=== PATIENT | female | born 1945 | race Caucasian/White ===

== ENCOUNTER 2016-11-08 12:36 | Inpatient (IN) | payer MEDICARE, OTHER ==
--- NOTE | 2016-11-08 12:58 | PDOC ---
History of Present Illness - General History Source: Patient Exam Limitations: No Limitations - History of Present Illness Initial Comments: 11/08/16 13:20 The patient is a 71 year old female with a significant past medical history of lymphoma (in remission), breast CA s/p right sided lumpectomy, hypomagnesemia who presents to the ED with complaints of diarrhea, nausea, and vomiting since yesterday. The patient reports an episode of diarrhea yesterday afternoon. She states she developed nausea and vomiting last night. She also reports left upper quadrant and left lower quadrant pain. Denies flank pain. Denies back pain. Denies chest pain or shortness of breath. Denies fever or chills. Denies any other symptoms. Denies recent sick contact. Surgical hx: spleen removal (a year ago), gallstone removal (multiple years ago) , right lumpectomy (6 years ago) <Reina Richardson - Last Filed: 11/08/16 19:02> <Stephani Garner - Last Filed: 11/10/16 17:38> - General Chief Complaint: Nausea/Vomiting Stated Complaint: NAUSEA/VOMITING Time Seen by Provider: 11/08/16 12:58 Past History <Reina Richardson - Last Filed: 11/08/16 19:02> - Past Medical History Anemia: Yes (no transfusion) Asthma: No Cancer: Yes (Breast CA RIGHT, non-hodgkins Lymphoma) Cardiac Disorders: No CVA: No COPD: No CHF: No Dementia: No Diabetes: No GI Disorders: No Disorders: No HTN: No Hypercholesterolemia: No Liver Disease: No Seizures: No Thyroid Disease: No - Surgical History Abdominal Surgery: No Appendectomy: No Cardiac Surgery: No Cholecystectomy: Yes Lung Surgery: No Neurologic Surgery: No Orthopedic Surgery: No - Suicide/Smoking/Psychosocial Hx Smoking History: Never smoked Have you smoked in the past 12 months: No Hx Alcohol Use: No Drug/Substance Use Hx: No Substance Use Type: None Hx Substance Use Treatment: No <Stephani Garner - Last Filed: 11/10/16 17:38> - Past Medical History Allergies/Adverse Reactions: Allergies Allergy/AdvReac Type Severity Reaction Status Date / Time No Known Drug Allergies Allergy Verified 11/08/16 12:39 Home Medications: Ambulatory Orders Benzonatate [Tessalon Perle -] 100 mg PO TID 03/08/14 Calcium Carbonate [Oyster Shell Calcium] 1,250 mg PO ASDIR 03/08/14 Folic Acid - 1 mg PO DAILY 03/08/14 Hydroxychloroquine Sulfate 200 mg PO ASDIR 03/08/14 Cholecalciferol (Vitamin D3) [Vitamin D3 -] 1,000 unit PO DAILY 11/08/16 Review of Systems - Review of Systems Able to Perform ROS?: Yes Comments:: 11/08/16 13:20 CONSTITUTIONAL: No reported: Fever, Chills, Diaphoresis, Generalized Weakness, Malaise, Loss of Appetite HEENT: No reported: Rhinorrhea, Nasal Congestion, Throat Pain, Throat Swelling, Difficulty Swallowing, Mouth Swelling, Ear Pain, Eye Pain, Visual Changes CARDIOVASCULAR: No reported: Chest Pain, Syncope, Palpitations, Irregular Heart Rate, Lightheadedness, Peripheral Edema RESPIRATORY: No reported: Cough, Shortness of Breath, SOB with Exertion, Orthopnea, Wheezing , Stridor, Hemoptysis GASTROINTESTINAL: + abdominal pain, nausea, vomiting, diarrhea No reported: Abdominal Distension,Constipation, Melena, Hematochezia GENITOURINARY: No reported: Dysuria, Frequency, Urgency, Hesitancy, Flank Pain, Genital Pain MUSCULOSKELETAL: No reported: Myalgia, Arthralgia, Joint Swelling, Back pain, Neck Pain SKIN: No reported: Rash, Itching, Pallor HEMEATOLOGIC/IMMUNOLOGIC: No reported: Easy Bleeding, Easy Bruising, Lymphadenopathy, Frequent infections ENDOCRINE: No reported: Unexplained Weight Gain, Unexplained Weight Loss, Heat Intolerance , Cold Intolerance NEUROLOGIC: No reported: Headache, Focal Weakness, Paresthesias, Vertigo, Lightheadedness, Unsteady Gait, Seizure, Mental Status Changes, Incontinence PSYCHIATRIC: No reported: Anxiety, Depression All Other Systems: Reviewed and Negative <Reina Richardson - Last Filed: 11/08/16 19:02> *Physical Exam - Vital Signs Last Vital Signs Temp Pulse Resp BP Pulse Ox 98.9 F 103 H 20 155/76 97 11/08/16 12:39 11/08/16 12:39 11/08/16 12:39 11/08/16 12:39 11/08/16 12:39 - Physical Exam Comments: 11/08/16 13:20 GENERAL: Well developed, well nourished. Awake and alert. No acute distress. HEENT: + dry mucous membranes. Normocephalic, atraumatic. PERRLA, EOMI. No conjunctival pallor. Sclera are non- icteric. Oropharynx is clear. NECK: Supple. Full ROM. No JVD. Carotid pulses 2+ and symmetric, without bruits. No thyromegaly. No lymphadenopathy. CARDIOVASCULAR: Regular rate and rhythm. No murmurs, rubs, or gallops. Distal pulses are 2+ and symmetric. PULMONARY: No evidence of respiratory distress. Lungs clear to auscultation bilaterally. No wheezing, rales or rhonchi. ABDOMINAL: + left upper quadrant tenderness, left lower quadrant tenderness. Hyperactive bowel sounds. Soft. Non-distended. No rebound or guarding. No organomegaly. MUSCULOSKELETAL Normal range of motion at all joints. No bony deformities or tenderness. No CVA tenderness. EXTREMITIES: No cyanosis. No clubbing. No edema. No calf tenderness. SKIN: Warm and dry. Normal capillary refill. No rashes. No jaundice. NEUROLOGICAL: Alert, awake, appropriate. Cranial nerves 2-12 intact. No deficits to light touch and temperature in face, upper extremities and lower extremities. No motor deficits in the in face, upper extremities and lower extremities. Normoreflexic in the upper and lower extremities. Normal speech. Toes are down- going bilaterally. Gait is normal without ataxia. PSYCHIATRIC: Cooperative. Good eye contact. Appropriate mood and affect. <Reina Richardson - Last Filed: 11/08/16 19:02> - Vital Signs Last Vital Signs Temp Pulse Resp BP Pulse Ox 98.9 F 103 H 20 155/76 97 11/08/16 12:39 11/08/16 12:39 11/08/16 12:39 11/08/16 12:39 11/08/16 12:39 <Stephani Garner - Last Filed: 11/10/16 17:38> ED Treatment Course - LABORATORY CBC & Chemistry Diagram: 11/08/16 12:59 11/08/16 12:59 <Reina Richardson - Last Filed: 11/08/16 19:02> - LABORATORY CBC & Chemistry Diagram: 11/10/16 06:30 11/10/16 06:30 <Stephani Garner - Last Filed: 11/10/16 17:38> Medical Decision Making - Medical Decision Making 11/08/16 19:02 Dr. Rosenbaum was paged at 19:02. <Reina Richardson - Last Filed: 11/08/16 19:02> - Medical Decision Making 11/08/16 13:07 71-year-old female presents with complaint of nausea, vomiting, diarrhea and left lower quadrant pain PMH Lymphoma,anemia ,L breast cancer PSH Left lumpectomy,cholecystectomy,splenectomy 11/08/16 16:10 11/08/16 16:22 pt has been experiencing nausea,vomiting and diarrhea since last night -she has c/o LUQ and LLQ pain -Diff diag includes sbo because she's had prior surgeries/diverticulitis <Stephani Garner - Last Filed: 11/10/16 17:38> *DC/Admit/Observation/Transfer - Attestations Scribe Attestion: 11/08/16 13:21 Documentation prepared by Reina Richardson, acting as medical file clerk for Stephani Garner MD <Reina Richardson - Last Filed: 11/08/16 19:02> <Stephani Garner - Last Filed: 11/10/16 17:38> Diagnosis at time of Disposition: Colitis - Discharge Dispostion Condition at time of disposition: Stable - Referrals
[2016-11-08] MEDS ORDERED: SODIUM CHLORIDE 1,000 ML IV STA ×2 (13:09→15:53)
[2016-11-08] MEDS ORDERED: ONDANSETRON 4 MG/2 ML VIAL IVPUSH ONE ×2 (13:09→18:12)
[2016-11-08] MEDS ORDERED: HYDROmorphone HCL CARPU-JECT 1 MG/1 ML DISP.SYRIN IVPUSH ONE (13:57)
[2016-11-08] MEDS ORDERED: ONDANSETRON 4 MG/2 ML VIAL ONE (14:00)
[2016-11-08 14:21] LABS: URINE APPEARANCE CLEAR; URINE BILIRUBIN NEGATIVE (NEGATIVE); URINE BLOOD NEGATIVE (NEGATIVE); URINE COLOR LTYELLOW; URINE GLUCOSE (UA) NEGATIVE (NEGATIVE); URINE KETONE NEGATIVE (NEGATIVE); URINE LEUK ESTERASE NEGATIVE (NEGATIVE); URINE NITRITE NEGATIVE (NEGATIVE); URINE PROTEIN NEGATIVE (NEGATIVE); URINE UROBILINOGEN NEGATIVE mg/dL (0.2-1.0)
[2016-11-08 14:49] LABS: BASOPHIL 0.6 % (0-2.0); EOSINOPHIL 0.3 % (0-4.5); MCH 28.6 pg (25.7-33.7); MCHC 33.4 g/dl (32.0-36.0); MEAN CELL VOLUME 85.4 fl (80-96); MEAN PLT VOLUME 9.5 fl (7.5-11.1); NEUTROPHILS 70.2 % (42.8-82.8); RDW 15.3 % (11.6-15.6); WHITE BLOOD COUNT 20.1 K/mm3 (4.0-10.0)
[2016-11-08 15:13] LABS: ALBUMIN 3.7 g/dl (3.4-5.0); ANION GAP 7 (8-16); BILIRUBIN,TOTAL 0.4 mg/dL (0.2-1.0); CALCIUM 8.8 mg/dL (8.5-10.1); CO2 26 mmol/L (21-32); CREATININE 0.7 mg/dL (0.55-1.02); GLUCOSE,RANDOM 91 mg/dL (74-106); SGOT/AST 29 U/L (15-37); SGPT/ALT 30 U/L (12-78); TOT PROT 8.6 g/dl (6.4-8.2)
[2016-11-08 15:14] LABS: ALK PHOS 329 U/L (45-117)
[2016-11-08] MEDS ORDERED: HYDROmorphone HCL CARPU-JECT 1 MG/1 ML DISP.SYRIN ONE (15:14)
[2016-11-08 15:34] LABS: PLATELET COUNT 154 K/MM3 (134-434); PLATELET ESTIMATE INCREASED (NORMAL)
[2016-11-08 15:45] LABS: CPK 174 IU/L (26-192); TROPONIN I < 0.02 ng/ml (0.00-0.05)
--- NOTE | 2016-11-08 19:53 | PDOC ---
*Physical Exam - Vital Signs Last Vital Signs Temp Pulse Resp BP Pulse Ox 98.7 F 91 H 18 155/76 97 11/08/16 18:26 11/08/16 18:26 11/08/16 18:26 11/08/16 18:26 11/08/16 18:26 ED Treatment Course - LABORATORY CBC & Chemistry Diagram: 11/08/16 12:59 11/08/16 12:59 - ADDITIONAL ORDERS Additional order review: Laboratory Results 11/08/16 11/08/16 11/08/16 14:26 12:59 12:59 Sodium 140 Potassium 3.7 Chloride 107 Carbon Dioxide 26 Anion Gap 7 L BUN 11 D Creatinine 0.7 Creat Clearance w eGFR > 60 Random Glucose 91 Calcium 8.8 Total Bilirubin 0.4 D AST 29 ALT 30 Alkaline Phosphatase 329 H D Creatine Kinase 174 Creatine Kinase Index 4.1 CK-MB (CK-2) 7.208 H Troponin I < 0.02 Total Protein 8.6 H Albumin 3.7 Lipase 418 H Urine Color Ltyellow Urine Appearance Clear Urine pH 6.0 Urine Protein Negative Urine Glucose (UA) Negative Urine Ketones Negative Urine Blood Negative Urine Nitrite Negative Urine Bilirubin Negative Urine Urobilinogen Negative 11/08/16 12:59 RBC 4.57 D MCV 85.4 MCHC 33.4 RDW 15.3 D MPV 9.5 D Neutrophils % 70.2 Lymphocytes % 19.2 D Monocytes % 9.7 Eosinophils % 0.3 Basophils % 0.6 - Medications Given in the ED: ED Medications Discontinued Medications Generic Name Dose Route Start Last Admin Trade Name Freq PRN Reason Stop Dose Admin Hydromorphone HCl 0.5 mg 11/08/16 13:57 11/08/16 15:15 Dilaudid Injection - IVPUSH 11/08/16 13:58 0.5 mg ONCE ONE Administration Sodium Chloride 1,000 mls @ 1,000 mls/hr 11/08/16 13:09 11/08/16 14:14 Normal Saline - IV 11/08/16 14:08 1,000 mls/hr ASDIR STA Administration Sodium Chloride 1,000 mls @ 1,000 mls/hr 11/08/16 15:53 11/08/16 18:19 Normal Saline - IV 11/08/16 16:52 1,000 mls/hr ASDIR STA Administration Ondansetron HCl 4 mg 11/08/16 13:09 11/08/16 14:10 Zofran Injection IVPUSH 11/08/16 13:10 4 mg ONCE ONE Administration Ondansetron HCl 4 mg 11/08/16 18:12 11/08/16 18:19 Zofran Injection IVPUSH 11/08/16 18:13 4 mg ONCE ONE Administration Medical Decision Making - Medical Decision Making 11/08/16 19:45 Patient signed out to me by Dr. Garner. Briefly, 71-year-old female history of lymphoma in remission and breast cancer status post lumpectomy presents with nausea vomiting and diarrhea as well as abdominal pain since yesterday. WBC 20, lipase 418. CT scan with new biliary duct dilation as well as multiple enlarged lymph nodes intra-abdominally and diffuse thickening of the olivares of the colon. I spoke with Dr. Molina's BUILDING ASSOCIATE Rosanne who is covering for Dr. Gray - pt accepted for admission for further management. LAVERN Lay also requested c/s Dr. Diaz from GI who we called and are awaiting a call back. Case discussed in detail with admitting physician including history, physical exam and ancillary studies. Admitting physician has assumed care for the patient, will follow all pending diagnostics and will complete the evaluation and treatment. 11/08/16 19:[address] Diaz who will see the patient. *DC/Admit/Observation/Transfer Diagnosis at time of Disposition: Colitis - Discharge Dispostion Condition at time of disposition: Stable Admit: Yes - Referrals Referrals: Armin Rosenbaum MD [Primary Care Provider] - - Patient Instructions - Post Discharge Activity - Attestations Physician Attestion: 11/08/16 19:54 I, Dr. Shahram Scruggs MD, attest that this document has been prepared under my direction and personally reviewed by me in its entirety. I further attest, that it accurately reflects all work, treatment, procedures and medical decision -making performed by me.
--- NOTE | 2016-11-08 20:30 | EKG ---
Test Reason : Blood Pressure : / mmHG Vent. Rate : 087 BPM Atrial Rate : 087 BPM P-R Int : 138 ms QRS Dur : 078 ms QT Int : 420 ms P-R-T Axes : 042 052 049 degrees QTc Int : 505 ms NORMAL SINUS RHYTHM SEPTAL INFARCT , AGE UNDETERMINED PROLONGED QT ABNORMAL ECG WHEN COMPARED WITH ECG OF 12-AUG-2013 16:02, SEPTAL INFARCT IS NOW PRESENT Confirmed by JUSTINO JACOBS, BILL ([id number]) on 11/08/2016 8:30:05 PM Referred By: Confirmed By:BILL BADILLO MD
[2016-11-08] MEDS ORDERED: ONDANSETRON 4 MG/2 ML VIAL IVPB PRN (20:33)
[2016-11-08] MEDS ORDERED: morphine CARPU-JECT 4 MG/1 ML DISP.SYRIN IVPUSH PRN (20:37)
[2016-11-08] MEDS ORDERED: DEXTROSE 5%-NORMAL SALINE 1,000 ML IV SCH (20:45)
[2016-11-09 01:58] VITALS: BMI 24.7
[2016-11-09] MEDS: HEPARIN NA (PORCINE) 5,000 UNITS/ML 1ML VIAL SQ SCH ×3 (07:31→22:13)
[2016-11-09 07:51] LABS: BASOPHIL 0.3 % (0-2.0); EOSINOPHIL 0.3 % (0-4.5); MCH 28.7 pg (25.7-33.7); MCHC 33.9 g/dl (32.0-36.0); MEAN CELL VOLUME 84.7 fl (80-96); MEAN PLT VOLUME 10.1 fl (7.5-11.1); NEUTROPHILS 70.7 % (42.8-82.8); WHITE BLOOD COUNT 17.8 K/mm3 (4.0-10.0)
[2016-11-09] MEDS ORDERED: FLU VACCINE QUAD 60 MCG/0.5 ML (MDV 17-18) IM ONE (08:00)
[2016-11-09 08:20] LABS: ALBUMIN 3.4 g/dl (3.4-5.0); ALK PHOS 290 U/L (45-117); AMYLASE 94 U/L (25-115); ANION GAP 6 (8-16); BILIRUBIN,TOTAL 0.7 mg/dL (0.2-1.0); CO2 26 mmol/L (21-32); CREATININE 0.6 mg/dL (0.55-1.02); GLUCOSE,RANDOM 104 mg/dL (74-106); SGOT/AST 25 U/L (15-37); SGPT/ALT 28 U/L (12-78)
[2016-11-09 09:02] LABS: PLATELET COUNT 270 K/MM3 (134-434); PLATELET ESTIMATE ADEQUATE (NORMAL)
--- NOTE | 2016-11-09 09:03 | CON.ID ---
Consult Consult Specialty:: Infectious Disease Reason for Consultation:: Multiple episodes of diarrhea - History of Present Illness History of Present Illness: 71yo F with significant history of lymphoma (in remission; last dose of chemo 2 years ago) who presents with multiple episodes of watery, diarrhea that has been increasingly worse since 11/07. Pt states she has had diarrhea intermittantly for the past 2 months, however she states recently it has gotten worse. She confirms associated nausea and multipe episodes of vomiting without any noted blood or mucus seen. She denies any melena or hematachezia, denies any recent travel, fever/chills, recent antibiotic usage, and sick contacts. As stated above, her last dose of chemotherapy was 2 years ago in [place] and she reports being in remission for her lymphoma since then. She reports having a splenectomy one year prior and remembers receiving 3-4 vaccines prior to the surgery which she keeps up to date. SoHx: No sick contacts. No recent travel. Lives in [place]; retired. No smoking , drinking, illicit drug use NKDA - History Source History Provided By: Patient Limitations to Obtaining History: No Limitations - Past Medical History Heme/Onc: Yes: Cancer (Breast s/p Right lumpectomy), Other (Lymphoma) Endocrine: Yes: Other (Hypomagnesemia) - Past Surgical History Past Surgical History: Yes: Cholecystectomy ("Many years ago"), Colonoscopy ( Most recent about 2014), Splenectomy (1 year ago) Additional Surgical History: R breast lumpectomy (6 years ago) - Alcohol/Substance Use Hx Alcohol Use: No - Smoking History Smoking history: Never smoked Have you smoked in the past 12 months: No - Social History ADL: Independent Occupation: Retired History of Recent Travel: No Home Medications - Allergies Allergies/Adverse Reactions: Allergies Allergy/AdvReac Type Severity Reaction Status Date / Time No Known Drug Allergies Allergy Verified 11/08/16 12:39 - Home Medications Home Medications: Ambulatory Orders Benzonatate [Tessalon Perle -] 100 mg PO TID 03/08/14 Calcium Carbonate [Oyster Shell Calcium] 1,250 mg PO ASDIR 03/08/14 Folic Acid - 1 mg PO DAILY 03/08/14 Hydroxychloroquine Sulfate 200 mg PO ASDIR 03/08/14 Cholecalciferol (Vitamin D3) [Vitamin D3 -] 1,000 unit PO DAILY 11/08/16 Physical Exam Vital Signs: Vital Signs Temperature 98.1 F 11/09/16 06:00 Pulse Rate 80 11/09/16 06:00 Respiratory Rate 18 11/09/16 06:00 Blood Pressure 142/54 11/09/16 06:00 O2 Sat by Pulse Oximetry (%) 98 11/08/16 19:55 Constitutional: Yes: Well Nourished, No Distress, Calm Eyes: Yes: Conjunctiva Clear, EOM Intact, PERRL Neck: Yes: Supple, Trachea Midline. No: Lymphadenopathy Cardiovascular: Yes: Regular Rate and Rhythm. No: Murmur Respiratory: Yes: Regular, CTA Bilaterally. No: Rales, Rhonchi, SOB, Wheezes Gastrointestinal: Yes: Normal Bowel Sounds, Soft. No: Hepatomegaly, Tenderness Edema: No Neurological: Yes: Alert, Oriented Psychiatric: Yes: Alert, Oriented Labs: CBC, BMP 11/09/16 07:00 11/09/16 07:00 Hepatic Panel Total Bilirubin 0.7 mg/dL (0.2-1.0) D 11/09/16 07:00 AST 25 U/L (15-37) 11/09/16 07:00 ALT 28 U/L (12-78) 11/09/16 07:00 Alkaline Phosphatase 290 U/L (45-117) H 11/09/16 07:00 Albumin 3.4 g/dl (3.4-5.0) 11/09/16 07:00 Imaging - Results Cat Scan: Image Reviewed (By my read: contrast seen throughout the colon, slight thickening of R colonic wall, no stranding or other inflammatory signs seen in the area of thickening in question; slightly dilated biliary tract noted ; official read pending) Assessment/Plan Assessment: Differential includes --Viral gastroenteritis vs IBS --Doubt C. Diff infection or other colitis; will r/o Leukocytosis Plan: Will observe off antibiotics for now; pt is afebrile with symptomatic improvement from initial presentation Leukocytosis most likely attributed to prior history of splenectomy and lymphoma --Recommend trending due to elevation Follow-up on C. Diff Ag and toxin Stool Cx; Blood Cx; Stool ova and parasites; Rotavirus Ag; Norovirus PCR all ordered Mahad Sloan, PGY-1
--- NOTE | 2016-11-09 09:03 | PN ---
Progress Note (short form) - Note Progress Note: Called to evaluate patient. Ms. Wooten tells me that she has been followed by Dr. Arroyo who performed hwr two screening colonoscopies, the last being about 3 -4 years ago. I spoke with Dr. Gillis who stated that he would see the patient today. I advised him that an MRI/MRCP had been ordered for evaluation of her dilated biliary tract.
[2016-11-09 09:34] LABS: LDH 207 U/L (84-246)
--- NOTE | 2016-11-09 12:13 | PN ---
Teaching Attending Note Name of Resident: Mahad Sloan ATTENDING PHYSICIAN STATEMENT I saw and evaluated the patient. I reviewed the resident's note and discussed the case with the resident. I agree with the resident's findings and plan as documented. SUBJECTIVE:71 y/o female PMH lymphoma in remission, S/P splenectomy, admitted with non-bloody diarrhea. Afebrile with elevated WBC. No ill contacts, no travel, no recent antibiotics. OBJECTIVE: Non toxic appearing Afebrile Cor S1S2 Lungs clear Abdomen +BS , soft, non tender ASSESSMENT AND PLAN: Acute gastroenteritis vs. colitis Leukocytosis multifactorial Hx splenectomy Await cultures, stool studies Observe off antibiotics
--- NOTE | 2016-11-09 15:28 | HP ---
Admitting History and Physical - Primary Care Physician PCP: Garry Dan - Admission Chief Complaint: ABD PAIN/NAUSEA AND VOMITING History of Present Illness: The patient is a 71 year old female with a significant past medical history of lymphoma (in remission), breast CA s/p right sided lumpectomy, hypomagnesemia who presents to the ED with complaints of diarrhea, nausea, and vomiting since yesterday. The patient reports an episode of diarrhea yesterday afternoon. She states she developed nausea and vomiting last night. She also reports left upper quadrant and left lower quadrant pain. Denies flank pain. Denies back pain. Denies chest pain or shortness of breath. Denies fever or chills. Denies any other symptoms. Denies recent sick contact. History Source: Patient, Medical Record - Past Medical History Heme/Onc: Yes: Cancer (Breast s/p Right lumpectomy), Other (Lymphoma) Endocrine: Yes: Other (Hypomagnesemia) - Past Surgical History Past Surgical History: Yes: Cholecystectomy ("Many years ago"), Colonoscopy ( Most recent about 2014), Splenectomy (1 year ago) - Smoking History Smoking history: Never smoked Have you smoked in the past 12 months: No - Alcohol/Substance Use Hx Alcohol Use: No - Social History ADL: Independent Occupation: Retired History of Recent Travel: No Home Medications - Allergies Allergies/Adverse Reactions: Allergies Allergy/AdvReac Type Severity Reaction Status Date / Time No Known Drug Allergies Allergy Verified 11/08/16 12:39 - Home Medications Home Medications: Ambulatory Orders Benzonatate [Tessalon Perle -] 100 mg PO TID 03/08/14 Calcium Carbonate [Oyster Shell Calcium] 1,250 mg PO ASDIR 03/08/14 Folic Acid - 1 mg PO DAILY 03/08/14 Hydroxychloroquine Sulfate 200 mg PO ASDIR 03/08/14 Cholecalciferol (Vitamin D3) [Vitamin D3 -] 1,000 unit PO DAILY 11/08/16 Review of Systems - Review of Systems Constitutional: reports: Loss of Appetite, Weakness Eyes: reports: No Symptoms HENT: reports: No Symptoms Neck: reports: No Symptoms Cardiovascular: reports: No Symptoms Respiratory: reports: No Symptoms Gastrointestinal: reports: Abdominal Pain, Constipation, Indigestion, Nausea, Vomiting Genitourinary: reports: No Symptoms Musculoskeletal: reports: No Symptoms Integumentary: reports: No Symptoms Neurological: reports: No Symptoms Endocrine: reports: No Symptoms Hematology/Lymphatic: reports: No Symptoms Psychiatric: reports: No Symptoms Physical Examination Vital Signs: Vital Signs Temperature 98.1 F 11/09/16 06:00 Pulse Rate 80 11/09/16 06:00 Respiratory Rate 18 11/09/16 06:00 Blood Pressure 142/54 11/09/16 06:00 O2 Sat by Pulse Oximetry (%) 98 11/08/16 19:55 Constitutional: Yes: Mild Distress Eyes: Yes: WNL HENT: Yes: WNL Neck: Yes: WNL Cardiovascular: Yes: WNL Respiratory: Yes: WNL Gastrointestinal: Yes: Tenderness, Rebound Renal/: Yes: WNL Musculoskeletal: Yes: WNL Extremities: Yes: WNL Edema: No Integumentary: Yes: WNL Wound/Incision: Yes: Clean/Dry Neurological: Yes: WNL ...Motor Strength: WNL Psychiatric: Yes: WNL Labs: CBC, BMP 11/09/16 07:00 11/09/16 07:00 Problem List - Problems (1) Colitis Code(s): K52.9 - NONINFECTIVE GASTROENTERITIS AND COLITIS, UNSPECIFIED (2) Anemia Code(s): D64.9 - ANEMIA, UNSPECIFIED (3) Blast cell leukemia Code(s): C95.00 - ACUTE LEUKEMIA OF UNSP CELL TYPE NOT ACHIEVE REMISSION (4) Hypomagnesemia Code(s): E83.42 - HYPOMAGNESEMIA Assessment/Plan ID CONSULT FOR COLITIS GI DR OLIVA NPO IVF REPLETE KCL AND MG
[2016-11-09] MEDS: KCL 10 MEQ IVPB 100 ML IVPB SCH ×2 (16:07→17:09)
[2016-11-09] MEDS: POTASSIUM CHLORIDE 10 MEQ in DEXTROSE 5%-NORMAL SALINE 1,000 ML IVPB SCH (17:09)
[2016-11-09] MEDS: ONDANSETRON 4 MG/2 ML VIAL IVPB SCH (17:59)
--- NOTE | 2016-11-09 18:00 | CON.GI ---
Consult Consult Specialty:: GI Referred by:: Dr Dan Reason for Consultation:: N/V/D - History of Present Illness Chief Complaint: Admitted with 1 day N/V and diarrhea. She only had a single episode of diarrhea. History of Present Illness: 71 F with h/o lymphoma (in remission), breast CA s/p right sided lumpectomy, admitted with 24 hours of enteritis symptoms CT done with contrast shows areas of colonic thickening and mildly dilated central bile ducts. - History Source History Provided By: Patient, Medical Record Limitations to Obtaining History: No Limitations - Past Medical History Endocrine: Yes: Other (Hypomagnesemia) - Past Surgical History Past Surgical History: Yes: Cholecystectomy ("Many years ago"), Colonoscopy ( Most recent about 2014), Splenectomy (1 year ago) Additional Surgical History: R breast lumpectomy (6 years ago) - Alcohol/Substance Use Hx Alcohol Use: No - Smoking History Smoking history: Never smoked Have you smoked in the past 12 months: No - Social History ADL: Independent Occupation: Retired History of Recent Travel: No Home Medications - Allergies Allergies/Adverse Reactions: Allergies Allergy/AdvReac Type Severity Reaction Status Date / Time No Known Drug Allergies Allergy Verified 11/08/16 12:39 - Home Medications Home Medications: Ambulatory Orders Benzonatate [Tessalon Perle -] 100 mg PO TID 03/08/14 Calcium Carbonate [Oyster Shell Calcium] 1,250 mg PO ASDIR 03/08/14 Folic Acid - 1 mg PO DAILY 03/08/14 Hydroxychloroquine Sulfate 200 mg PO ASDIR 03/08/14 Cholecalciferol (Vitamin D3) [Vitamin D3 -] 1,000 unit PO DAILY 11/08/16 Physical Exam-GI Vital Signs: Vital Signs Temperature 97.9 F 11/09/16 16:10 Pulse Rate 70 11/09/16 16:10 Respiratory Rate 20 11/09/16 16:10 Blood Pressure 167/80 11/09/16 16:10 O2 Sat by Pulse Oximetry (%) 96 11/09/16 09:00 Constitutional: Yes: Well Nourished, No Distress, Calm Neck: Yes: Supple Cardiovascular: Yes: Regular Rate and Rhythm Respiratory: Yes: CTA Bilaterally Labs: CBC, BMP 11/09/16 07:00 11/09/16 07:00 Hepatic Panel Total Bilirubin 0.7 mg/dL (0.2-1.0) D 11/09/16 07:00 AST 25 U/L (15-37) 11/09/16 07:00 ALT 28 U/L (12-78) 11/09/16 07:00 Alkaline Phosphatase 290 U/L (45-117) H 11/09/16 07:00 Albumin 3.4 g/dl (3.4-5.0) 11/09/16 07:00 Imaging - Results Cat Scan: Report Reviewed (central biliary ductal dilation (mild) and piecemeal colonic thickening suggesting colitis) Assessment/Plan 71 F with above history, called to evaluate above symptoms Symptoms have resolved and as such, no further testing necessary Advance diet mild ductal dilation poss secondary to prior enma, but with elevated alk phos, agree with MRI To follow with onc (Bradley) on d/c
--- NOTE | 2016-11-09 22:16 | CONSULT ---
Consult - text type - Consultation Consultation Note: The patient is a 71 year old female with a significant past medical history of lymphoma (in remission), breast CA s/p right sided lumpectomy, hypomagnesemia who presents to the ED with complaints of diarrhea, nausea, and vomiting since yesterday. She states she developed nausea and vomiting last night. She also reports left upper quadrant and left lower quadrant pain. Denies flank pain. Denies back pain. Denies chest pain or shortness of breath. Denies fever or chills. Denies any other symptoms. Denies recent sick contact. Surgical hx: spleen removal (a year ago), gallstone removal (multiple years ago) , right lumpectomy (6 years ago) - Past Medical History Anemia: Yes (no transfusion) Cancer: Yes (Breast CA RIGHT, non-hodgkins Lymphoma) - Suicide/Smoking/Psychosocial Hx Smoking History: Never smoked Allergies/Adverse Reactions: Allergies Allergy/AdvReac Type Severity Reaction Status Date / Time No Known Drug Allergies Allergy Verified 11/08/16 12:39 Home Medications: Ambulatory Orders Benzonatate [Tessalon Perle -] 100 mg PO TID 03/08/14 Calcium Carbonate [Oyster Shell Calcium] 1,250 mg PO ASDIR 03/08/14 Folic Acid - 1 mg PO DAILY 03/08/14 Hydroxychloroquine Sulfate 200 mg PO ASDIR 03/08/14 Cholecalciferol (Vitamin D3) [Vitamin D3 -] 1,000 unit PO DAILY 11/08/16 Current Medications Generic Name Dose Route Start Last Admin Trade Name Freq PRN Reason Stop Dose Admin Heparin Sodium (Porcine) 5,000 unit 11/08/16 22:00 11/09/16 22:13 Heparin - SQ 5,000 unit BID DWIGHT Administration Potassium Chloride 10 meq/ 1,005 mls @ 75 mls/hr 11/09/16 15:30 11/09/16 17:09 Dextrose/Sodium Chloride IVPB 75 mls/hr ASDIR DWIGHT Administration Morphine Sulfate 2 mg 11/08/16 20:37 Morphine Injection - IVPUSH 11/11/16 20:36 Q4H PRN PAIN Ondansetron HCl 4 mg 11/09/16 18:00 11/09/16 17:59 Zofran Injection IVPB Not Given Q6H DWIGHT - Vital Signs Last Vital Signs Temp Pulse Resp BP Pulse Ox 97.9 F 70 20 167/80 96 11/09/16 16:10 11/09/16 16:10 11/09/16 16:10 11/09/16 16:10 11/09/16 09:00 Cor: RSR, No murmurs, No gallops Lungs: Clear to P&A Abd: Soft, Normal bowel sounds, No organomegaly Ext:No significant edema Skin: No rashes, Integument intact Abnormal Lab Results 11/09/16 11/09/16 07:00 07:00 WBC 17.8 H Monocytes % 11.3 H Potassium 3.2 L Chloride 108 H Anion Gap 6 L Calcium 8.0 L Alkaline Phosphatase 290 H Home Medication List Medication Instructions Recorded Confirmed Type Benzonatate [Tessalon Perle -] 100 mg PO TID 03/08/14 11/08/16 History Calcium Carbonate [Oyster Shell 1,250 mg PO ASDIR 03/08/14 11/08/16 History Calcium] Folic Acid - 1 mg PO DAILY 03/08/14 11/08/16 History Hydroxychloroquine Sulfate 200 mg PO ASDIR 03/08/14 11/08/16 History Cholecalciferol (Vitamin D3) 1,000 unit PO DAILY 11/08/16 11/08/16 History [Vitamin D3 -] Active Medications Generic Name Dose Route Start Last Admin Trade Name Freq PRN Reason Stop Dose Admin Heparin Sodium (Porcine) 5,000 unit 11/08/16 22:00 11/09/16 22:13 Heparin - SQ 5,000 unit BID DWIGHT Administration Potassium Chloride 10 meq/ 1,005 mls @ 75 mls/hr 11/09/16 15:30 11/09/16 17:09 Dextrose/Sodium Chloride IVPB 75 mls/hr ASDIR DWIGHT Administration Morphine Sulfate 2 mg 11/08/16 20:37 Morphine Injection - IVPUSH 11/11/16 20:36 Q4H PRN PAIN Ondansetron HCl 4 mg 11/09/16 18:00 11/09/16 17:59 Zofran Injection IVPB Not Given Q6H DWIGHT A/P 71 y/o patient with h/obreast cancer in 2008, s/p lumpectomy. 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 due to colitis Infectious w/u ongoing will need to f/u with Dr. Huerta as outpatient. ? PEt-CT as outpatient will need PET-CT
[2016-11-10] MEDS: ONDANSETRON 4 MG/2 ML VIAL IVPB SCH ×4 (06:20→17:11)
[2016-11-10 07:35] LABS: MCHC 34.2 g/dl (32.0-36.0); MEAN CELL VOLUME 84.7 fl (80-96); MEAN PLT VOLUME 9.9 fl (7.5-11.1); PLATELET COUNT 275 K/MM3 (134-434); RDW 14.8 % (11.6-15.6); WHITE BLOOD COUNT 18.8 K/mm3 (4.0-10.0)
--- NOTE | 2016-11-10 07:50 | PN ---
Physical Exam: Consulting Specialty: Infectious Disease SUBJECTIVE: Patient resting comfortably in bed. She reports her episodes of diarrhea has ceased, but continues to have intermittent nausea episodes that's being controlled by Zofran. She states she has not had anything by mouth yesterday and is currently hungry. Pt continues to have abdominal discomfort, but it is much lower in intensity than when she initially came in. Denies fever/ chills. OBJECTIVE: Vital Signs Period Temp Pulse Resp BP Sys/Petty Pulse Ox Last 24 Hr 97.2 F-98.4 F 70-87 20-20 128-167/48-80 96-96 GENERAL: The patient is awake, alert, and fully oriented, in no acute distress. HEENT: Normal structures. Moist mucosa. LUNGS: Breath sounds equal, clear to auscultation bilaterally, no wheezes, no crackles, no accessory muscle use. HEART: Regular rate and rhythm, S1, S2 without murmur, rub or gallop. ABDOMEN: Soft, mild tenderness in LLQ > RLQ, non-distended, normoactive bowel sounds, no hepatomegaly appreciated EXTREMITIES: No edema. NEUROLOGICAL: Alert and oriented x3 PSYCH: Normal mood, normal affect Laboratory Results - last 24 hr 11/09/16 11/09/16 11/09/16 07:00 07:00 07:00 WBC 17.8 H RBC 4.14 Hgb 11.9 Hct 35.0 MCV 84.7 MCH 28.7 MCHC 33.9 RDW 15.0 Plt Count 270 D MPV 10.1 Neutrophils % 70.7 Lymphocytes % 17.4 Monocytes % 11.3 H Eosinophils % 0.3 Basophils % 0.3 Platelet Estimate Adequate Platelet Comment No clumping noted Sodium 140 Potassium 3.2 L Chloride 108 H Carbon Dioxide 26 Anion Gap 6 L BUN 7 D Creatinine 0.6 Creat Clearance w eGFR > 60 Random Glucose 104 Calcium 8.0 L Total Bilirubin 0.7 D AST 25 ALT 28 Alkaline Phosphatase 290 H LD Total Cancelled 207 D Total Protein 8.0 Albumin 3.4 Total Amylase 94 Lipase 123 Active Medications Generic Name Dose Route Start Last Admin Trade Name Freq PRN Reason Stop Dose Admin Heparin Sodium (Porcine) 5,000 unit 11/08/16 22:00 11/09/16 22:13 Heparin - SQ 5,000 unit BID DWIGHT Administration Potassium Chloride 10 meq/ 1,005 mls @ 75 mls/hr 11/09/16 15:30 11/09/16 17:09 Dextrose/Sodium Chloride IVPB 75 mls/hr ASDIR DWIGHT Administration Morphine Sulfate 2 mg 11/08/16 20:37 Morphine Injection - IVPUSH 11/11/16 20:36 Q4H PRN PAIN Ondansetron HCl 4 mg 11/09/16 18:00 11/10/16 06:20 Zofran Injection IVPB 4 mg Q6H DWIGHT Administration ASSESSMENT: Viral gastroenteritis most likely Ruling out infectious colitis causes Leukocytosis PLAN: Stool cultures, Norovirus PCR, Rotavirus Ag, C. Diff toxin/Ag pending still Advance diet per GI - currently advanced to "Full liquids" Continue to observe off antibiotics for now due to improving clinical condition As before, leukocytosis multi-factorial Visit type - Emergency Visit Emergency Visit: No - New Patient This patient is new to me today: No - Critical Care Critical Care patient: No
[2016-11-10 07:56] LABS: ANION GAP 7 (8-16); CO2 25 mmol/L (21-32); CREATININE 0.5 mg/dL (0.55-1.02); GLUCOSE,RANDOM 106 mg/dL (74-106); MAGNESIUM 1.7 mg/dL (1.8-2.4)
[2016-11-10] MEDS ORDERED: MAGNESIUM SULF 50% (8.12 MEQ/2 ML-1 GM VIAL) IVPB ONE (08:25)
[2016-11-10] MEDS ORDERED: KCL 10 MEQ IVPB 100 ML IVPB SCH (08:30)
--- NOTE | 2016-11-10 09:00 | PN ---
Progress Note (short form) - Note Progress Note: Patient seen and examined VSS General: NAD HEad: NCAT Neck: No LAD Abdomen: Lungs: Extremities: Temp Pulse Resp BP Pulse Ox 98.4 F 84 20 128/48 96 11/10/16 06:34 11/10/16 06:34 11/10/16 06:34 11/10/16 06:34 11/09/16 21:00 Current Medications Generic Name Dose Route Start Last Admin Trade Name Freq PRN Reason Stop Dose Admin Heparin Sodium (Porcine) 5,000 unit 11/08/16 22:00 11/09/16 22:13 Heparin - SQ 5,000 unit BID DWIGHT Administration Potassium Chloride 10 meq/ 1,005 mls @ 75 mls/hr 11/09/16 15:30 11/09/16 17:09 Dextrose/Sodium Chloride IVPB 75 mls/hr ASDIR DWIGHT Administration Potassium Chloride 100 mls @ 100 mls/hr 11/10/16 08:30 Potassium Chloride 10 Meq Premix Ivpb - IVPB 11/10/16 09:29 Q60M DWIGHT Magnesium Sulfate 1 gm 11/10/16 08:25 Magnesium Sulfate IVPB 11/10/16 08:26 ONCE ONE Morphine Sulfate 2 mg 11/08/16 20:37 Morphine Injection - IVPUSH 11/11/16 20:36 Q4H PRN PAIN Ondansetron HCl 4 mg 11/09/16 18:00 11/10/16 06:20 Zofran Injection IVPB 4 mg Q6H DWIGHT Administration CBC, BMP 11/10/16 06:30 11/10/16 06:30 71 y/o patient with h/obreast cancer in 2008, s/p lumpectomy. 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 Well known to team at [facility] CT c/a/p --shows transverse colitis/dilated central intrahepatic ducts,celiac adenopathy, adnexal cyst, fibrod MRI abdomen: report reviewed LDH nl infectious w/u ongoing Leukocytosis/neutrophilia--? due to colitis +/- absence of spleen contributing. Infectious w/u pending, thus far no growth, presently on conservative management. GI/ID f/u noted will need to f/u with Dr. Bradley as outpatient. ? PET-CT as outpatient to evaluate the present CT findings
[2016-11-10] MEDS ORDERED: PT OWN MED DRAWER 7, Y5N ONE ×2 (10:19→12:07)
[2016-11-10] MEDS: HEPARIN NA (PORCINE) 5,000 UNITS/ML 1ML VIAL SQ SCH ×2 (10:49→21:14)
--- NOTE | 2016-11-10 13:23 | PN ---
Teaching Attending Note Name of Resident: Mahad Sloan ATTENDING PHYSICIAN STATEMENT I saw and evaluated the patient. I reviewed the resident's note and discussed the case with the resident. I agree with the resident's findings and plan as documented. SUBJECTIVE: Still with non-bloody diarrhea No c/o abdominal pain Vomiting last night Afebrile WBC remains elevated OBJECTIVE: Afebrile Abdomen soft, non tender ASSESSMENT AND PLAN: Gastroenteritis v. colitis Leukocytosis S/P Splenectomy Await stool studies Observe off antibiotics
--- NOTE | 2016-11-10 13:59 | PN ---
Progress Note, Physician Chief Complaint: diarrhea continues no fever no chills - Current Medication List Current Medications: Active Medications Heparin Sodium (Porcine) (Heparin -) 5,000 unit SQ BID [facility] Last Admin: 11/10/16 10:49 Dose: 5,000 unit Potassium Chloride 10 meq/ (Dextrose/Sodium Chloride) 1,005 mls @ 75 mls/hr IVPB ASDIR [facility] Last Admin: 11/09/16 17:09 Dose: 75 mls/hr Morphine Sulfate (Morphine Injection -) 2 mg IVPUSH Q4H PRN PRN Reason: PAIN Stop: 11/11/16 20:36 Ondansetron HCl (Zofran Injection) 4 mg IVPB Q6H [facility] Last Admin: 11/10/16 11:51 Dose: Not Given - Objective Vital Signs: Vital Signs Temperature 98.4 F 11/10/16 06:34 Pulse Rate 84 11/10/16 06:34 Respiratory Rate 20 11/10/16 06:34 Blood Pressure 128/48 11/10/16 06:34 O2 Sat by Pulse Oximetry (%) 96 11/09/16 21:00 Constitutional: Yes: No Distress Eyes: Yes: WNL HENT: Yes: WNL Neck: Yes: WNL Cardiovascular: Yes: WNL Respiratory: Yes: WNL Gastrointestinal: Yes: WNL Genitourinary: Yes: WNL Musculoskeletal: Yes: WNL Extremities: Yes: WNL Edema: No Peripheral Pulses WNL: Yes Integumentary: Yes: WNL Wound/Incision: Yes: Clean/Dry Neurological: Yes: WNL ...Motor Strength: WNL Psychiatric: Yes: WNL Labs: CBC, BMP 11/10/16 06:30 11/10/16 06:30 Problem List - Problems (1) Colitis Code(s): K52.9 - NONINFECTIVE GASTROENTERITIS AND COLITIS, UNSPECIFIED (2) Anemia Code(s): D64.9 - ANEMIA, UNSPECIFIED (3) Blast cell leukemia Code(s): C95.00 - ACUTE LEUKEMIA OF UNSP CELL TYPE NOT ACHIEVE REMISSION (4) Hypomagnesemia Code(s): E83.42 - HYPOMAGNESEMIA Assessment/Plan START PO DIET STOOL FOR CDIFF ID FOLLOW UP START PO DIET
[2016-11-10] MEDS: POTASSIUM CHLORIDE 10 MEQ in DEXTROSE 5%-NORMAL SALINE 1,000 ML IVPB SCH (16:17)
--- NOTE | 2016-11-10 19:41 | PN ---
GI Progress Note Subjective: Feels well-no complaint - Objective Vital Signs: Vital Signs Temperature 98.9 F 11/10/16 16:35 Pulse Rate 81 11/10/16 16:35 Respiratory Rate 20 11/10/16 16:35 Blood Pressure 147/66 11/10/16 16:35 O2 Sat by Pulse Oximetry (%) 97 11/10/16 09:00 Constitutional: Well Nourished HENT: Yes: Normocephalic Cardiovascular: Yes: Regular Rate and Rhythm Respiratory: Yes: CTA Bilaterally Gastrointestinal Inspection: Yes: WNL ...Auscultate: Yes: Normoactive Bowel Sounds ...Palpate: Yes: Soft. No: Tenderness ...Percussion: Yes: Dullness Labs: CBC, BMP 11/10/16 06:30 11/10/16 06:30 Hepatic Panel Total Bilirubin 0.7 mg/dL (0.2-1.0) D 11/09/16 07:00 AST 25 U/L (15-37) 11/09/16 07:00 ALT 28 U/L (12-78) 11/09/16 07:00 Alkaline Phosphatase 290 U/L (45-117) H 11/09/16 07:00 Albumin 3.4 g/dl (3.4-5.0) 11/09/16 07:00 Assessment/Plan 71 F with above history, called to evaluate above symptoms Symptoms have resolved and as such, no further testing necessary Advance diet mild ductal dilation poss secondary to prior enma, but with elevated alk phos, agree with MRI which showed stable dilation of the ducts with no choledocholithiasis To follow with onc Saravanan) on d/c
[2016-11-11] MEDS: ONDANSETRON 4 MG/2 ML VIAL IVPB SCH (01:19)
[2016-11-11 07:34] LABS: BASOPHIL 1.3 % (0-2.0); EOSINOPHIL 0.8 % (0-4.5); MCH 28.4 pg (25.7-33.7); MCHC 33.8 g/dl (32.0-36.0); MEAN PLT VOLUME 10.1 fl (7.5-11.1); PLATELET COUNT 284 K/MM3 (134-434); RDW 14.8 % (11.6-15.6); WHITE BLOOD COUNT 16.3 K/mm3 (4.0-10.0)
[2016-11-11 08:02] LABS: ALBUMIN 3.3 g/dl (3.4-5.0); ANION GAP 6 (8-16); CALCIUM 8.2 mg/dL (8.5-10.1); CO2 26 mmol/L (21-32); GLUCOSE,RANDOM 87 mg/dL (74-106); URIC ACID 5.8 mg/dL (2.6-7.2)
[2016-11-11 08:05] LABS: ALK PHOS 231 U/L (45-117); BILIRUBIN,TOTAL 0.7 mg/dL (0.2-1.0); CREATININE 0.5 mg/dL (0.55-1.02); LDH 217 U/L (84-246); SGOT/AST 21 U/L (15-37); SGPT/ALT 24 U/L (12-78)
[2016-11-11] MEDS: HEPARIN NA (PORCINE) 5,000 UNITS/ML 1ML VIAL SQ SCH (09:37)
[2016-11-11 10:58] VITALS: BP 141/69; PULSE 79; TEMP 98.4
--- NOTE | 2016-11-11 11:13 | CONSULT ---
Consult Consult Specialty:: Hematology Oncology Referred by:: Sy Reason for Consultation:: Hx Lymphoma , diarrhea - History of Present Illness Chief Complaint: diarrhea X 5 d, nausea History of Present Illness: 71 y/o F w hx NHL , indolent at this time, no recent chemorx ,s/p splenectomy 1 yr ago admitted w sudden onset diarrhea,watery, 4 days ago assoc w nausea, L sided abdominal crampy pain , no fevers/chills/sweats; pt was feeling well prior to this. Pt also w hx early stage breast cancer and hx lupus-like syndrome . Pt Rx empirically w ab's , getting better . CTa/p and MRI abd. showing mild biliary dilatation , s/p cholecystectomy , slightly enlarged periportal LN's; alk elevated. - History Source History Provided By: Patient Limitations to Obtaining History: No Limitations - Past Medical History BLOCK PILER: No: Alzheimer's, CVA, Dementia, Migraine, Multiple Sclerosis, Peripheral Neuropathy, Parkinson's, Seizure, Syncope, TIA, Vertigo, Other Pulmonary: No: Asthma, Bronchitis, Cancer, COPD, O2 Dependent, Pneumonia, Previously Intubated, Pulmonary Embolus, Pulmonary Fibrosis, Sleep Apnea, Other Gastrointestinal: No: Ascites, Cancer, Constipation, Crohn's Disease, Diverticulitis, Diverticulosis, Esophageal Varices, Gastritis, GERD, GI Bleed, Hemorrhoids, Hiatal Hernia, Inflamatory Bowel Disease, Irritable Bowel Disease, Pancreatitis, Peptic Ulcer Disease, Ulcerative Colitis, Other Hepatobiliary: Yes: Other (cholecystectomy) Renal/: No: Renal Failure, Renal Inusuff, BPH, Cancer, Hematuria, Hemodialysis , Neurogenic Bladder, Renal Calculi, UTI, Other Reproductive: Yes: Other (ovarian cyst) Heme/Onc: Yes: Other (chronic leukopenia, hx NHL s/p various chemo's in [past) Endocrine: Yes: Other (Hypomagnesemia) - Past Surgical History Past Surgical History: Yes: Cholecystectomy ("Many years ago"), Colonoscopy ( Most recent about 2014), Splenectomy (1 year ago) Additional Surgical History: R breast lumpectomy (6 years ago) - Alcohol/Substance Use Hx Alcohol Use: No - Smoking History Smoking history: Never smoked Have you smoked in the past 12 months: No - Social History ADL: Independent Occupation: Retired History of Recent Travel: No Home Medications - Allergies Allergies/Adverse Reactions: Allergies Allergy/AdvReac Type Severity Reaction Status Date / Time No Known Drug Allergies Allergy Verified 11/08/16 12:39 - Home Medications Home Medications: Ambulatory Orders Benzonatate [Tessalon Perle -] 100 mg PO TID 03/08/14 Calcium Carbonate [Oyster Shell Calcium] 1,250 mg PO ASDIR 03/08/14 Folic Acid - 1 mg PO DAILY 03/08/14 Hydroxychloroquine Sulfate 200 mg PO ASDIR 03/08/14 Cholecalciferol (Vitamin D3) [Vitamin D3 -] 1,000 unit PO DAILY 11/08/16 Review of Systems - Review of Systems Constitutional: reports: Loss of Appetite, Weakness Eyes: reports: No Symptoms HENT: reports: No Symptoms Neck: reports: No Symptoms Cardiovascular: reports: No Symptoms Respiratory: reports: No Symptoms Gastrointestinal: reports: Abdominal Pain (improving), Diarrhea (improving), Other Genitourinary: denies: No Symptoms, Burning, Discharge, Dysuria, Flank Pain, Frequency, Hematuria, Incontinence, Lesions, Menses, Pain, Testicular Mass, Testicular Pain, Testicular Swelling, Urgency, Vaginal Bleeding, Other Breasts: reports: No Symptoms Reported Musculoskeletal: reports: No Symptoms Integumentary: reports: No Symptoms Neurological: reports: No Symptoms Endocrine: reports: No Symptoms Hematology/Lymphatic: reports: No Symptoms Psychiatric: reports: No Symptoms Physical Exam Vital Signs: Vital Signs Temperature 98.4 F 11/11/16 10:00 Pulse Rate 79 11/11/16 10:00 Respiratory Rate 18 11/11/16 10:00 Blood Pressure 141/69 11/11/16 10:00 O2 Sat by Pulse Oximetry (%) 97 11/11/16 09:00 Constitutional: Yes: Well Nourished, No Distress, Calm Eyes: Yes: WNL HENT: Yes: WNL, Atraumatic Neck: Yes: WNL, Supple Cardiovascular: Yes: WNL, Regular Rate and Rhythm Respiratory: Yes: WNL, Regular, CTA Bilaterally Gastrointestinal: Yes: WNL, Normal Bowel Sounds, Soft Musculoskeletal: Yes: WNL Extremities: Yes: WNL Edema: No Labs: CBC, BMP 11/11/16 07:20 11/11/16 07:20 Problem List - Problems (1) Colitis Code(s): K52.9 - NONINFECTIVE GASTROENTERITIS AND COLITIS, UNSPECIFIED (2) Lymphoma Code(s): C85.90 - NON-HODGKIN LYMPHOMA, UNSPECIFIED, UNSPECIFIED SITE Assessment/Plan Pt seems to have acut gastroenteritis ?viral , seems to be improving .Doubt lymphoma active here but have to keep following pt ; also pt has ovarian cyst; advised her to f/u w her patent chemist soon ; to see me in 1-2 weeks; d/c as per medicine
--- NOTE | 2016-11-11 11:29 | PN ---
Physical Exam: SUBJECTIVE: Pt tolerating diet without nausea/vomiting and abdominal pain. Pt is ready to go home. No fevers noted. OBJECTIVE: Vital Signs Period Temp Pulse Resp BP Sys/Petty Pulse Ox Last 24 Hr 98.4 F-98.9 F 73-82 18-20 141-150/64-75 97-97 GENERAL: The patient is awake, alert, and fully oriented, in no acute distress. LUNGS: CTA bilaterally. No wheezes/rhonchi/rales HEART: RRR, S1, S2 without murmur, rub or gallop. ABDOMEN: Soft, nontender, nondistended, normoactive bowel sounds EXTREMITIES: No edema. PSYCH: Normal mood, normal affect. Laboratory Results - last 24 hr 11/11/16 11/11/16 07:20 07:20 WBC 16.3 H RBC 4.24 Hgb 12.0 Hct 35.6 MCV 84.0 MCH 28.4 MCHC 33.8 RDW 14.8 Plt Count 284 MPV 10.1 Neutrophils % 62.0 Lymphocytes % 24.3 D Monocytes % 11.6 H Eosinophils % 0.8 D Basophils % 1.3 D Sodium 139 Potassium 3.5 Chloride 107 Carbon Dioxide 26 Anion Gap 6 L BUN 7 D Creatinine 0.5 L Creat Clearance w eGFR > 60 Random Glucose 87 Uric Acid 5.8 D Calcium 8.2 L Magnesium 2.0 Total Bilirubin 0.7 AST 21 ALT 24 Alkaline Phosphatase 231 H D LD Total 217 Total Protein 8.0 Albumin 3.3 L Active Medications Generic Name Dose Route Start Last Admin Trade Name Freq PRN Reason Stop Dose Admin Heparin Sodium (Porcine) 5,000 unit 11/08/16 22:00 11/11/16 09:37 Heparin - SQ 5,000 unit BID DWIGHT Administration Morphine Sulfate 2 mg 11/08/16 20:37 Morphine Injection - IVPUSH 11/11/16 20:36 Q4H PRN PAIN Ondansetron HCl 4 mg 11/09/16 18:00 11/11/16 01:19 Zofran Injection IVPB Not Given Q6H [facility] ASSESSMENT: Viral gastroenteritis most likely Lymphoma s/p Splenectomy PLAN: Pending cultures and PCR's still Blood Cx's negative Been observing off ABX Leukocytosis probably related to post-splenectomy reactions --Regardless has been trending down with clinical resolution of symptoms Visit type - Emergency Visit Emergency Visit: No - New Patient This patient is new to me today: No - Critical Care Critical Care patient: No
[2016-11-11] MEDS ORDERED: LOPERAMIDE HCL 2 MG CAPSULE PO PRN (11:35)
--- NOTE | 2016-11-11 11:36 | PN ---
Teaching Attending Note Name of Resident: Mahad Sloan ATTENDING PHYSICIAN STATEMENT I saw and evaluated the patient. I reviewed the resident's note and discussed the case with the resident. I agree with the resident's findings and plan as documented. SUBJECTIVE: Reports improvement in diarrhea Still with loose, non-bloody stool No c/o abdominal pain No fever/ chills OBJECTIVE: Cor S1S2 Lungs clear Abdomen soft, non tender ASSESSMENT AND PLAN: Acute gastroenteritis v. colitis Leukocytosis Hx lymphoma in remission Await stool studies Observe off antibiotics
--- NOTE | 2016-11-11 11:38 | DS ---
Physical Examination Vital Signs: Vital Signs Temperature 98.4 F 11/11/16 10:00 Pulse Rate 79 11/11/16 10:00 Respiratory Rate 18 11/11/16 10:00 Blood Pressure 141/69 11/11/16 10:00 O2 Sat by Pulse Oximetry (%) 97 11/11/16 09:00 Constitutional: Yes: No Distress Eyes: Yes: WNL HENT: Yes: WNL Neck: Yes: WNL Cardiovascular: Yes: WNL Respiratory: Yes: WNL Gastrointestinal: Yes: WNL Renal/: Yes: WNL Musculoskeletal: Yes: WNL Extremities: Yes: WNL Edema: No Peripheral Pulses WNL: Yes Integumentary: Yes: WNL Wound/Incision: Yes: Clean/Dry Neurological: Yes: WNL ...Motor Strength: WNL Psychiatric: Yes: WNL Labs: CBC, BMP 11/11/16 07:20 11/11/16 07:20 Discharge Summary Reason For Visit: COLITIS Current Active Problems Colitis (Acute) Procedures: Principal: ct/mri Hospital Course: ivf no acute mass, acute gastroenteritis Condition: Stable - Instructions Diet, Activity, Other Instructions: low residue/lactose free diet see dr rosenbaum 2 days Referrals: Armin Rosenbaum MD [Primary Care Provider] - Disposition: VNS/HOME HEALTH CARE - Home Medications Comprehensive Discharge Medication List: Ambulatory Orders Benzonatate [Tessalon Perle -] 100 mg PO TID 03/08/14 Calcium Carbonate [Oyster Shell Calcium] 1,250 mg PO ASDIR 03/08/14 Folic Acid - 1 mg PO DAILY 03/08/14 Hydroxychloroquine Sulfate 200 mg PO ASDIR 03/08/14 Cholecalciferol (Vitamin D3) [Vitamin D3 -] 1,000 unit PO DAILY 11/08/16
== END 2016-11-11 12:15 | disposition home health service (06) | DRG 392 ==
LOC: SUPCPDRO 12:36 → JER 12:36 → JERBED 19:55 → J8W 11-09 00:25
PROVIDERS: ADMIT Family Medicine; ATTEND Family Medicine
DX: K52.89 Other specified noninfective gastroenteritis and colitis (principal); E83.42 Hypomagnesemia; D64.9 Anemia, unspecified; R10.32 Left lower quadrant pain; D72.828 Other elevated white blood cell count; R59.9 Enlarged lymph nodes, unspecified; D25.9 Leiomyoma of uterus, unspecified; Z85.3 Personal history of malignant neoplasm of breast; Z85.72 Personal history of non-Hodgkin lymphomas; Z90.81 Acquired absence of spleen
CPT/HCPCS: 36415; 71010-TC; 74177-TC; 74183-TC; 80048; 80053; 81003; 82150; 82553; 83615; 83690; 83735; 84484; 84550; 85025; 85027; 85651; 86140; 87040; 87045; 87046; 87086; 87177; 87209; 87425; 87493; 87798; 93005; 93010; 99283-25; J1644